=== PATIENT | male | born 1990 | race Two or more races ===

== ENCOUNTER 2021-07-24 20:39 | Emergency (ER) | payer OTHER ==
[~2021-07-24] VITALS: Ht 177.8 cm; Wt 90.3 kg
[2021-07-24] MEDS ORDERED: hydrOXYzine HCL 10 MG TAB PO ONE (21:30)
[2021-07-24] MEDS ORDERED: ALPRAZolam 0.25 MG TAB PO ONE (21:45)
[2021-07-24] MEDS ORDERED: IBUPROFEN 800 MG TAB PO ONE (21:45)
[2021-07-24 21:46] VITALS: BP 133/62
== END 2021-07-24 22:33 | disposition home or self-care (01) ==
LOC: ER 20:42
DX: R51.9 Headache, unspecified (principal)